=== PATIENT | female | born 1965 | race Hispanic/Latino ===

== ENCOUNTER 2024-11-08 07:27 | Day surgery (SDC) | payer MEDICAID ==
[2024-11-08] VITALS (10 sets, daily range): BP systolic 83–126; BP diastolic 41–78; PULSE 58–74; RESP 14–17; TEMP 97.2–97.9
[~2024-11-08] VITALS: Ht 162.6 cm; Wt 83.0 kg
[~2024-11-08 07:27] MED LIST: ASPI-1197 PO; CETI10TA87 PO; DOCU100C33 PO; DULO30CA52 PO; EMPA25TA PO; FAMO-290 PO; GABA-529 PO; HYDR50CA50 PO; INSU3INS3 SQ; LINZESS PO; LOSA1TAB37 PO; VENL75TA89 PO
[2024-11-08] MEDS: 0.9%NACL 1000ML 1,000 ML IV ONE (09:09)
[2024-11-08] MEDS ORDERED: proPOFol 10 MG/ML 20ML VIAL IV ONE (11:42)
== END 2024-11-08 12:45 | disposition home or self-care (01) ==
LOC: DAH 07:27 → ENDO 07:27
PROVIDERS: ATTEND Internal Medicine Gastroenterology
DX: K59.04 Chronic idiopathic constipation (principal); I10 Essential (primary) hypertension; E11.9 Type 2 diabetes mellitus without complications; F41.9 Anxiety disorder, unspecified; F32.A Depression, unspecified; Z86.73 Personal history of transient ischemic attack (TIA), and cerebral infarction without residual deficits; Z79.82 Long term (current) use of aspirin; Z79.899 Other long term (current) drug therapy; Z53.8 Procedure and treatment not carried out for other reasons
CPT/HCPCS: 45378; 82948; J7030 ×2; J2704; A4620; A4215 ×2; A4223; A4222; A4221; A4663; A4606; G0121; J3490

== ENCOUNTER 2024-11-09 08:03 | Day surgery (SDC) | payer MEDICAID ==
[2024-11-09] VITALS (10 sets, daily range): BP systolic 98–147; BP diastolic 45–78; PULSE 62–65; RESP 15–18; TEMP 97.5–97.7
[~2024-11-09] VITALS: Ht 165.1 cm; Wt 83.9 kg
[2024-11-09] MEDS ORDERED: proPOFol 10 MG/ML 20ML VIAL IV ONE (09:29)
[2024-11-09] MEDS ORDERED: LIDOCAINE PF 100MG/5ML (2%) SYRINGE 5ML ONE (09:29)
== END 2024-11-09 11:05 | disposition home or self-care (01) ==
LOC: ENDO 08:03 → DAH 08:03 → ENDO 11:05
PROVIDERS: ATTEND Internal Medicine Gastroenterology
DX: K59.04 Chronic idiopathic constipation (principal); K63.5 Polyp of colon; K62.1 Rectal polyp; F41.9 Anxiety disorder, unspecified; F32.A Depression, unspecified; E11.9 Type 2 diabetes mellitus without complications; Z86.73 Personal history of transient ischemic attack (TIA), and cerebral infarction without residual deficits; I10 Essential (primary) hypertension; Z79.82 Long term (current) use of aspirin; Z95.5 Presence of coronary angioplasty implant and graft; Z79.899 Other long term (current) drug therapy
CPT/HCPCS: 45380; 45385; 82948; J2003; J2704; A4620; A4215 ×2; A4223; A4222; A4221; A4663; J7030; A4606; J3490